=== PATIENT | male | born 2000 | race African-American/Black ===

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

== ENCOUNTER 2021-01-03 05:23 | Emergency (ER) | payer MEDICAID, OTHER ==
[~2021-01-03] VITALS: Ht 172.7 cm; Wt 79.5 kg
[~2021-01-03 05:23] MED LIST changes: +OLAN5TAB52 PO; -RISP1TAB48 PO
[2021-01-03 05:40] VITALS: BP 129/75
== END 2021-01-03 05:46 | disposition home or self-care (01) ==
LOC: EMS 05:24
DX: F10.10 Alcohol abuse, uncomplicated (principal); F20.9 Schizophrenia, unspecified; F17.200 Nicotine dependence, unspecified, uncomplicated; F12.90 Cannabis use, unspecified, uncomplicated; Z88.8 Allergy status to other drugs, medicaments and biological substances; Z59.0 Homelessness
CPT/HCPCS: 99283